=== PATIENT | male | born 1955 | race Caucasian/White ===

== ENCOUNTER 2017-02-15 17:58 | Emergency (ER) | payer BC ==
[~2017-02-15] VITALS: Ht 190.5 cm; Wt 115.5 kg
[~2017-02-15 17:58] MED LIST: COLACE100 MG PO; FLOMAX0.4 MG PO; PERCOCET 5/31 TABLET PO; VENTOLIN17 GM IH; ZOFRAN ODT4 MG PO
[2017-02-15 19:52] LABS: HEMATOCRIT 45.4 % (38.0-50.0); MCH 29.5 PG (29.0-34.0); MCV 89.4 FL (86-99); MEAN PLAT.VOLUME 9.8 uM^3 (9.0-12.4); PLATELET COUNT 200 K/uL (156-360); RBC DIS.WIDTH-SD 42.5 % (39-53); RED BLOOD COUNT 5.08 M/uL (4.00-5.50); WHITE BLOOD COUNT 9.2 K/uL (4.1-10.2)
[2017-02-15 20:05] LABS: CHLORIDE 107 mEq/L (99-109); POTASSIUM 4.3 mEq/L (3.7-5.4); SODIUM 140 mEq/L (136-147)
[2017-02-15 20:07] LABS: GLUCOSE 100 mg/dL (70-99)
[2017-02-15 20:08] LABS: ANION GAP 9 MEQ/L (2-14)
[2017-02-15 20:10] LABS: GFR ESTIMATE (CALCULATED) > 59 mL/min/
[2017-02-15 20:11] LABS: UREA NITROGEN (BUN) 17 mg/dL (9-23)
[2017-02-15 21:14] LABS: ADD MIUA? YES; BILIRUBIN NEGATIVE; BLOOD NEGATIVE; COLOR YELLOW ((YELLOW)); GLUCOSE (STRIP) NEGATIVE; KETONES NEGATIVE; LEUKOCYTES NEGATIVE; NITRITE NEGATIVE; PROTEIN (STRIP) 100; SPECIFIC GRAVITY 1.024 (1.000-1.030); UROBILINOGEN 0.2 MG/DL (0.2-1.0)
[2017-02-15 21:21] LABS: BACTERIA NONE SEEN /HPF; EPITHELIAL CELLS NONE SEEN /HPF; MUCUS TRACE /LPF; RED BLOOD CELLS 0-5 /HPF (0-5); UCUL ADDED? NO; WHITE BLOOD CELLS 0-5 /HPF (0-5)
[2017-02-15] MEDS ORDERED: ZOFRAN ODT4 MG PO (22:11)
[2017-02-15] MEDS ORDERED: PERCOCET 5/31 TABLET PO (22:11)
[2017-02-15] MEDS ORDERED: FLOMAX0.4 MG PO (22:24)
[2017-02-15 22:33] VITALS: BP 154/78
== END 2017-02-15 22:34 | disposition home or self-care (01) ==
LOC: EME 17:58
DX: M54.5 Low back pain (principal); M62.830 Muscle spasm of back; I10 Essential (primary) hypertension; J45.909 Unspecified asthma, uncomplicated; Z87.442 Personal history of urinary calculi
CPT/HCPCS: 74176; 80048; 81003; 85027; 99281; 99284